=== PATIENT | female | born 1980 | race Caucasian/White ===

== ENCOUNTER 2016-12-18 14:54 | Emergency (ER) | payer MEDICAID ==
[~2016-12-18] VITALS: Ht 160 cm; Wt 52.2 kg
[~2016-12-18 14:54] MED LIST: IBUPROFEN600 MG ORAL; KEFLEX500 MG ORAL; NORCO 5-325 TA1 EACH ORAL
[2016-12-18 15:10] VITALS: BP 120/84
[2016-12-18] MEDS ORDERED: PredniSONE 20mg tab ORAL ONE (15:15)
[2016-12-18] MEDS ORDERED: AMOXICILLIN500 MG ORAL (15:19)
[2016-12-18] MEDS ORDERED: PREDNISONE20 MG ORAL (15:19)
[2016-12-18 15:30] VITALS: BP 120/84
--- NOTE | 2016-12-18 16:03 | Emergency Room Report ---
History of Present Illness General Chief Complaint: Sore Throat Source: Patient Present Illness [facility] The patient is a 36-year-old female who denies any medical history presenting for sore throat and fevers for the past 3 days. She denies any known sick contacts. Described as a 10 out of 10 sharp pain to the back of the throat and worse with swallowing. Pain does not radiate. She denies any other symptoms including N, V, chills, SOB, rash, neck pain/stiffness Allergies: Coded Allergies: No Known Allergies (Unverified , 10/29/15) Patient History Past Medical History: see triage record Pertinent Family History: none Last Menstrual Period: 12/18/16 Now: No Reviewed Nursing Documentation: PMH: Agreed, PSxH: Agreed Nursing Documentation-PMH Past Medical History: No Stated History Review of Systems All Other Systems: negative except mentioned in HPI Physical Exam Vital Signs Date Time Temp Pulse Resp B/P Pulse Ox O2 Delivery O2 Flow Rate FiO2 12/18/16 15:03 98.1 76 17 120/84 99 Room Air Sp02 EP Interpretation: reviewed, normal General Appearance: no apparent distress, alert, GCS 15, non-toxic Head: normocephalic, atraumatic Eyes: bilateral eye PERRL, bilateral eye normal inspection ENT: hearing grossly normal, no angioedema, normal voice, TMs + canals normal, uvula midline, tonsillar swelling, pharyngeal erythema Neck: full range of motion, supple/symm/no masses Respiratory: chest non-tender, lungs clear, normal breath sounds, speaking full sentences Musculoskeletal: back normal, gait/station normal, normal range of motion, non- tender Neurologic: alert, oriented x3, responsive, motor strength/tone normal, sensory intact, speech normal Psychiatric: judgement/insight normal, memory normal, mood/affect normal, no suicidal/homicidal ideation Skin: normal color, no rash, warm/dry, well hydrated Lymphatic: adenopathy Medical Decision Making PA Attestation Dr. Antonio is my supervising physician. Patient management was discussed with my supervising physician Diagnostic Impression: Primary Impression: Pharyngitis, acute Qualified Codes: J02.9 - Acute pharyngitis, unspecified ER Course The pt is a 36 yo F presenting for sore throat and fevers Differential diagnosis include but not limited to pharyngitis, sinusitis, AOM, bronchitis, PNA Physical exam: Vitals within normal limits. Afebrile. No apparent distress HEENT exam: There is bilateral tonsillar edema, erythema Uvula midline. Moist mucous membranes. There is bilateral cervical lymphadenopathy. Lungs are clear to auscultation bilaterally Skin is warm and dry. No rash The patient is given amoxicillin and prednisone in the ER. The patient will be discharged home with a prescription for amoxicillin and is given ER precautions. Patient will followup with primary care Last Vital Signs Date Time Temp Pulse Resp B/P Pulse Ox O2 Delivery O2 Flow Rate FiO2 12/18/16 15:30 98.1 17 120/84 99 Room Air 12/18/16 15:03 76 Status: improved Disposition: HOME, SELF-CARE Condition: Improved Scripts Amoxicillin* (AMOXIL*) 500 Mg Capsule 500 MG ORAL Q12HR, #20 CAP Prov: VICKI ROMERO.Skylar 12/18/16 Prednisone* (PREDNISONE*) 20 Mg Tablet 40 MG ORAL DAILY, #10 TAB Prov: VICKI ROMERO 12/18/16 Referrals: [facility],REFERRING (PCP) Patient Instructions: Pharyngitis, Sore Throat Additional Instructions: I discussed my findings with the patient. All questions and concerns have been answered. Treatment and medication compliance have been addressed. I advised the patient that they need to follow up with PMD in 3-5 days. Return to ED if pain remains or worsens, cough worsens or remains, you notice blood in your sputum, you notice wheezing, you experience a fever, or if needed for any reason. Patient verbalized understanding of discharge instructions. VICKI ROMERO Dec 18, 2016 16:03
== END 2016-12-18 15:30 | disposition home or self-care (01) ==
LOC: EMR 15:20
DX: J02.9 Acute pharyngitis, unspecified (principal)
CPT/HCPCS: 99284

== ENCOUNTER 2017-07-22 18:09 | Emergency (ER) | payer MEDICAID ==
[~2017-07-22] VITALS: Ht 160 cm; Wt 52.2 kg
[~2017-07-22 18:09] MED LIST changes: +AMOXICILLIN500 MG ORAL; +PREDNISONE20 MG ORAL
[2017-07-22 18:35] VITALS: BP 145/85
--- NOTE | 2017-07-22 19:25 | Emergency Room Report ---
History of Present Illness General Chief Complaint: General Complaint Source: Patient Present Illness HPI 36-year-old female presents to the emergency department complaining of unilateral right-sided nasal congestion, purulent discharge x9 days in addition to body-aches, subjective fevers and chills, and intermittent cough. She reports swelling to the right side of her cheek and underneath her right eye times one day. She denies visual changes. She denies trauma or fall. Patient states that she's been taking Mucinex without relief. Denies eye pain or discharge. Patient denies history of immunocompromise.Denies high fevers, lethargy, neck stiffness, irritability, dehydration, N/V/D. Denies Cp, Palpitations, LOC, AMS, seizures, paresthesias, or changes in Hearing or vision , no Sudden severe NOGUEIRA. Allergies: Coded Allergies: No Known Allergies (Unverified , 10/29/15) Patient History Past Medical History: see triage record Past Surgical History: none Pertinent Family History: none Now: No Reviewed Nursing Documentation: PMH: Agreed, PSxH: Agreed Nursing Documentation-PMH Past Medical History: No Stated History Review of Systems All Other Systems: negative except mentioned in HPI Physical Exam Vital Signs Date Time Temp Pulse Resp B/P (MAP) Pulse Ox O2 Delivery O2 Flow Rate FiO2 07/22/17 18:16 95 20 145/85 100 Room Air 07/22/17 18:35 98.8 Sp02 EP Interpretation: reviewed, normal General Appearance: no apparent distress, alert, GCS 15, non-toxic Head: normocephalic, atraumatic Eyes: right eye other - Right lower periorbital swelling noted, EOMI without pain. , bilateral eye normal inspection, bilateral eye PERRL, bilateral eye EOMI ENT: hearing grossly normal, normal voice, TMs + canals normal, uvula midline, nasal congestion, other - TTP to the right maxillary sinus, swelling and mild erythema noted. purulent d/c noted in the right nare. the left nare is clear. Neck: full range of motion, no meningismus, no bony tend Respiratory: chest non-tender, lungs clear, normal breath sounds, speaking full sentences Cardiovascular #1: regular rate, rhythm Rectal: deferred Genitourinary: normal inspection Musculoskeletal: back normal, gait/station normal, normal range of motion, non- tender Neurologic: alert, oriented x3, responsive, motor strength/tone normal, sensory intact, speech normal, grossly normal Psychiatric: judgement/insight normal Skin: normal color, no rash, warm/dry, well hydrated Lymphatic: no adenopathy Medical Decision Making PA Attestation Dr. contreras is my supervising Physician whom patient management has been discussed with. Diagnostic Impression: Primary Impression: Sinusitis Qualified Codes: J01.11 - Acute recurrent frontal sinusitis ER Course Pt. presents to the ED c/o cough congestion body-aches, fevers, chills and headaches. Ddx considered but are not limited to URI, pneumonia, PE, strep pharyngitis, meningitis, Sinusitis. Vital signs: Pt. is afebrile, the remaining VS are WNL H&PE are most consistent with -- Sinusitis has not resolved on its own. Given that this patient has had symptoms for 9 days she is almost out of 10 day and it is care to begin antibiotics in addition to right-sided facial swelling and right lower periorbital swelling I believe this patient should start antibiotics as soon as possible. At this time no evidence of orbital cellulitis or periorbital cellulitis. ORDERS: none required at this time, the diagnosis is clinical ED INTERVENTIONS: None required at this time. Please see above explanation for administration of oral abx. pt. has symptoms of impending orbital/periorbital involvement and require administration of abx. purulent drainage, and prolonged symptoms. DISCHARGE: At this time pt. is stable for d/c to home. Will provide printed patient care instructions, and any necessary prescriptions. Care plan and follow up instructions have been discussed with the patient prior to discharge. Last Vital Signs Date Time Temp Pulse Resp B/P (MAP) Pulse Ox O2 Delivery O2 Flow Rate FiO2 07/22/17 18:35 98.8 68 18 145/85 100 Room Air Disposition: HOME, SELF-CARE Condition: Stable Scripts Loratadine/Pseudoephedrine (CLARITIN-D 12 HOUR TABLET) 1 Each Tab.er.12h 1 TAB ORAL EVERY 12 HOURS for 10 Days, #20 TAB Prov: Theresa Linton PClayton. 07/22/17 Amoxicillin/Potassium Clav 875-125* (AUGMENTIN 875-125 TABLET*) 1 Each Tablet 1 TAB ORAL TWICE A DAY for 10 Days, #20 TAB Prov: Theresa Linton 07/22/17 Codeine/Promethazine Hcl* (PROMETHAZINE-CODEINE SYRUP*) 118 Ml Syrup 5 ML ORAL Q6H Y for For Cough, #118 ML 0 Refills Prov: Theresa Linton 07/22/17 Patient Instructions: Sinusitis, Adult, [id number] Additional Instructions: Take medications as directed. Follow up with a Primary Care Provider in 3-5 days, even if your symptoms have resolved. --Please review list of primary care clinics, if you do not already have a primary care provider Return sooner to ED if new symptoms occur, or current symptoms become worse. Do not drink alcohol, drive, or operate heavy machinery while taking Cough Syrup as this may cause drowsiness. - Please note that this Emergency Department Report was dictated using [employer] superintendent technology software, occasionally this can lead to erroneous entry secondary to interpretation by the dictation equipment. Theresa Linton Jul 22, 2017 19:25
[2017-07-22] MEDS ORDERED: CLARITIN-D 121 EAC1 ORAL (19:30)
[2017-07-22] MEDS ORDERED: PROMETHAZINE-C118 M1 ORAL (19:30)
[2017-07-22] MEDS ORDERED: AUGMENTIN 875-1 EAC1 ORAL (19:30)
[2017-07-22 19:37] VITALS: BP 139/79
== END 2017-07-22 19:37 | disposition home or self-care (01) ==
LOC: EMR 18:30
DX: J32.9 Chronic sinusitis, unspecified (principal)
CPT/HCPCS: 99283